=== PATIENT | male | born 1960 | race Caucasian/White ===

== ENCOUNTER 2020-04-12 14:12 | Emergency (ER) | payer OTHER, SELFPAY ==
--- NOTE | 2020-04-12 14:14 | ED.GENADULT ---
HPI - General Adult General Chief complaint: Skin/Abscess/Foreign Body Stated complaint: POS skin abcess Time Seen by Provider: 04/12/20 14:14 Source: patient Mode of arrival: ambulatory Limitations: no limitations History of Present Illness HPI narrative: 60-year-old male patient presents to the [facility] with complaints of wound to his back for the past 3 to 4 days. Patient states that the wound is actually been there for a little over a year however it is been bothering him for the past 3 to 4 days and complains it is getting bigger as well some pressure and pain to the area. Denies any fevers, body aches or chills. Patient denies being a diabetic. Related Data Home Medications Medication Instructions Recorded Confirmed atorvastatin 20 mg PO DAILY 04/12/20 04/12/20 lisinopril-hydrochlorothiazide 20 tablet PO DAILY 04/12/20 04/12/20 metoprolol succinate 50 mg PO DAILY 04/12/20 04/12/20 Allergies Allergy/AdvReac Type Severity Reaction Status Date / Time No Known Allergies Allergy Unverified 04/12/20 14:20 Review of Systems Review of Systems: Narrative: CONSTITUTIONAL: Denies fever, chills, or sweats. EYES: Denies visual changes, redness, or discharge. ENT: Denies rhinorrhea, congestion, sore throat, or otalgia. CARDIOVASCULAR: Denies chest pain, palpitations, or edema. RESPIRATORY: Denies cough or dyspnea. GASTROINTESTINAL: Denies abdominal pain, nausea, vomiting, or diarrhea. GENITOURINARY: Denies dysuria or hematuria. SKIN: Denies rash or itching. Positive wound to back with increase redness and swelling for the past 3 to 4 days MUSCULOSKELETAL: Denies back pain, joint pain, or myalgia. NEUROLOGIC: Denies headache, numbness, or weakness. PSYCHIATRIC: Denies anxiety or depression. [facility] Past Medical History Medical History (Updated 04/12/20 @ 14:57 by TY Swanson) GI bleed Hypercholesterolemia Hypertension Musculoskeletal disorder Left shoulder rotator cuff tear and bicep tendon Seasonal allergies Surgical History Surgical History (Updated 04/12/20 @ 14:57 by TY Swanson) History of orthopedic surgery Left rotator cuff History of repair of rotator cuff 2007 Family History Family History Father Diabetes mellitus Mother Hypertension Social History Social History Smoking status: Former smoker Second hand tobacco smoke exposure: No Smoking end date: 07/16/16 Alcohol intake: current Substance use: never Substance use type: does not use Comments At the time of my signature I agree with nursing past medical history, surgical, social, and family history. There is no relevant family history pertinent to the presenting complaint. Exam Narrative: Exam Narrative: GENERAL: Well-appearing, well-nourished, and in no acute distress. HEAD: Normocephalic, atraumatic. EYES: PERRLA and EOMI. ENT: Nares clear, no rhinorrhea or epistaxis. Mucous membranes moist. NECK: Supple. No lymphadenopathy CHEST: Clear to auscultation. No respiratory distress. HEART: Regular rate and rhythm. No murmur heard. Normal peripheral pulses. ABDOMEN: Soft, nontender, nondistended, normal active bowel sounds. EXTREMITIES: Normal range of motion. No edema. SKIN: Warm, dry, no rash. Patient has approximately 5.5 x 4 cm abscess on the back with erythema and swelling no warmth noted to the touch. It is very tender noted on palpation. NEURO: No focal deficits. Alert and oriented x3. Course Vital Signs Vital signs: Vital Signs Temperature 36.9 C 04/12/20 14:16 Pulse Rate 105 H 04/12/20 14:16 Respiratory Rate 04/12/20 14:16 Blood Pressure 162/90 H 04/12/20 14:16 Pulse Oximetry 99 04/12/20 14:16 Temperature 36.9 C 04/12/20 14:16 Pulse Rate 105 H 04/12/20 14:16 Respiratory Rate 04/12/20 14:16 Blood Pressure 162/90 H 04/12/20 14:16 Pulse Oximetry 99
[2020-04-12 14:16] VITALS: BP 162/90; PULSE 105; RESP 20; TEMP 36.9; O2SAT 99
== END 2020-04-12 14:57 | disposition home or self-care (01) ==
PROVIDERS: Emergency Provider Nurse Practitioner Family; PCP Family Medicine
DX: L02.212 Cutaneous abscess of back [any part, except buttock and flank] (principal); Z87.891 Personal history of nicotine dependence; E78.00 Pure hypercholesterolemia, unspecified; I10 Essential (primary) hypertension
CPT/HCPCS: 10061; 87070; 87075; 87205; 99213; G0463

== ENCOUNTER → 2020-07-19 16:48 | Outpatient (REF) | payer OTHER, SELFPAY | LOC: ANHLAB 16:48 | PROVIDERS: PCP Family Medicine; Visit Provider Nurse Practitioner | DX: L30.9 Dermatitis, unspecified (principal) | CPT/HCPCS: 88305 ==

== ENCOUNTER 2020-11-02 07:59 | Outpatient (CLI) | payer OTHER, SELFPAY ==
--- NOTE | 2020-11-02 08:47 | ECG_ITS ---
Measurements Intervals [place] Rate: 80 P: 32 MT: 134 QRS: -12 QRSD: 105 T: 32 QT: 379 QTc: 439 Interpretive Statements SINUS RHYTHM INCOMPLETE RIGHT BUNDLE BRANCH BLOCK BASELINE ARTIFACT- I, II, III, AVR, AVL, AVF BORDERLINE ECG Electronically Signed On 11-02-2020 9:54:53 CDT by Collins Ribeiro D.O.
[2020-11-02 10:05] LABS: Basophils Absolute Auto 0.1 K/mm3 (0.0-0.1); Basophils Percent Auto 0.8 % (0.2-1.2); Eosinophils Absolute Auto 0.1 K/mm3 (0-0.3); Eosinophils Percent Auto 0.8 % (0-4.4); Hematocrit 45.1 % (42.0-52.0); Hemoglobin 15.1 g/dL (14.0-18.0); Immature Granulocyte Absolute 0.04 K/mm3 (0.00-0.031); Immature Granulocyte Percent A 0.4 % (0-0.5); Lymphocytes Absolute Auto 1.46 K/mm3 (0.9-3.2); Lymphocytes Percent Auto 15.8 % (18.3-44.2); Mean Corpuscular HGB Conc 33.5 g/dl (32-36); Mean Corpuscular Hemoglobin 32.2 pg (26-34); Mean Corpuscular Volume 96.2 fl (80-100); Mean Platelet Volume 10.5 fl (7.4-10.4); Monocytes Absolute Auto 0.8 K/mm3 (0.1-0.6); Monocytes Percent Auto 8.5 % (2.6-8.5); Neutrophils Absolute Auto 6.8 K/mm3 (1.3-6.7); Neutrophils Percent Auto 73.7 % (45.5-73.1); Platelet Count Result 264 k/mm3 (150-375); Red Blood Count 4.69 M/mm3 (4.6-6.20); Red Cell Distribution Width 13.6 % (11.5-14.5); White Blood Count 9.2 K/mm3 (4.5-10.0)
[2020-11-02 10:11] LABS: Urine Cotinine NEGATIVE
[2020-11-02 10:16] LABS: Albumin Level 4.5 g/dL (3.5-5.1); Anion Gap 8 mmol/L (8-16); Blood Urea Nitrogen 17 mg/dL (9-20); Calcium 9.2 mg/dL (8.4-10.2); Carbon Dioxide 32 mmol/L (22-30); Chloride 101 mmol/L (98-107); Estimated Glomerular Filt Rate > 60; Glucose 127 mg/dL (75-110); Potassium 4.1 mmol/L (3.4-5.0); Sodium 141 mmol/L (137-145)
[2020-11-02 10:49] LABS: Hemoglobin A1C 5.4 % (<5.7)
== END 2020-11-02 08:00 | disposition home or self-care (01) ==
LOC: ANHSURGERY 08:01
PROVIDERS: PCP Family Medicine; Visit Provider Orthopaedic Surgery
DX: M17.0 Bilateral primary osteoarthritis of knee (principal); Z01.818 Encounter for other preprocedural examination; I45.10 Unspecified right bundle-branch block
CPT/HCPCS: 80048; 80307; 82040; 83036; 85025; 87070; 93005

== ENCOUNTER → 2020-11-13 01:42 | Outpatient (CLI) | payer OTHER, SELFPAY ==
[2020-11-13 19:16] LABS: SARS-CoV-2 RNA PCR Negative
== END ==
PROVIDERS: PCP Family Medicine; Visit Provider Orthopaedic Surgery
DX: Z01.812 Encounter for preprocedural laboratory examination (principal); Z20.828 Contact with and (suspected) exposure to other viral communicable diseases
CPT/HCPCS: C9803; U0003; U0005

== ENCOUNTER 2020-11-17 01:29 | Day surgery (SDC) | payer OTHER, SELFPAY ==
[2020-11-02 07:52] VITALS: BMI 33.5
--- NOTE | 2020-11-12 08:51 | PM.IMHP ---
H&P: HPI History of Present Illness Date/Time: 11/12/20 08:51 60-year-old male patient of Dr. Blair who presents today for a left total knee arthroplasty with injection in the right knee. Patient has been having pain in both of his knees for years. Pain is progressively worsening. He had cortisone injection in May of last year which gave him minimal relief. He has severe [id number] arthritis medial compartment left knee with multiple loose bodies. Patient has reached a point where he feels he would rather proceed with total knee arthroplasty with a continued nonsurgical treatment. Chief Complaint: Left and right knee DJD Review of Systems Review of Systems: All systems reviewed & are unremarkable except as noted in HPI and below PMFSH Past Medical History Medical History Dyslipidemia Essential (primary) hypertension Musculoskeletal disorder Left shoulder rotator cuff tear and bicep tendon Prediabetes Seasonal allergies Surgical History Surgical History History of repair of rotator cuff 2007 - Left Family History Family History Father Diabetes mellitus Mother Hypertension Social History Social History Smoking packs per day: 1.5 Smoking cigarettes per day: 30.0 Years smoked: 38 Smoking pack-years: 57.00 Smoking status: Former smoker Tobacco type: cigarettes Second hand tobacco smoke exposure: No Smoking end date: 01/13/17 Alcohol intake: current Drinks per week: 28 Substance use: never Substance use type: does not use Additional living arrangements comments: Spiritual care concerns: No Meds Home Medications and Allergies Home Medications Medication Instructions Recorded Confirmed Type lisinopril 20 1 tablet PO QAM tablet 09/30/20 11/02/20 History mg-hydrochlorothiazide 25 mg tablet triamcinolone acetonide 0.1 % 1 applic TOPICAL BID #30 g 10/05/20 11/02/20 Rx topical cream atorvastatin 20 mg PO HS 11/02/20 11/02/20 History metoprolol succinate 50 mg PO QAM 11/02/20 11/02/20 History Allergies Allergy/AdvReac Type Severity Reaction Status Date / Time No Known Allergies Allergy Verified 11/02/20 10:40 Exam Narrative: Exam Narrative: 6-year-old male very alert [place]. He is 5 ft 10 to 140 lb. His left knee range of motion is from 7-120 degrees. Right knee is from 10-120 degrees. He walks with a mild limp relative to pain left knee. Has moderate effusion left knee. Moderate pain with patellofemoral grind. Moderately severe mid and posterior medial joint line tenderness left knee. Hip range of motion is full without discomfort. Normal quad strength. 2+ dorsalis pedis posterior tibial pulse. Normal sensation. No edema in left lower extremity. Resp: Auscultation: clear to auscultation bilaterally Cardio: Rate: regular rate Rhythm: regular rhythm Assessment and Plan Additional Plan 6-year-old male who has severe arthritis in the medial compartment with moderate patellofemoral arthritis left knee with continued symptoms. He also has severe medial compartment arthritis in the right knee. His left knee is more symptomatic this point and he would like proceed with left total knee arthroplasty. Surgical procedure as well as risks and complications were discussed in detail and all questions were answered and we will proceed. Patient will avoid any aspirin ibuprofen products 1 week prior to surgery. He will see his primary care doctor for pre-surgical clearance seem globe in is 15.1 platelets 264. Chem panel is all within normal limits as creatinine 1.00. His swab was negative. We will plan use Eliquis followed by caron martinez for DVT prophylaxis postoperatively.
[2020-11-17] VITALS (13 sets, daily range): BP systolic 98–136; BP diastolic 54–92; PULSE 77–94; RESP 10–18; TEMP 35.8–37.1; O2SAT 95–100; BMI 32.3
--- NOTE | ~2020-11-17 | XR_ITS ---
EXAMINATION: XR knee LT 2V EXAM DATE: 11/17/2020 11:12 INDICATION: Postoperative knee arthroplasty. TECHNIQUE: Portable frontal, crosstable lateral projections left knee obtained immediately following arthroplasty performed by orthopedic surgeon Jaron Walker MD. FINDINGS: Patient is status post total knee arthroplasty. The orthopedic hardware is in expected po sition. Mild scattered arteriosclerotic disease. There is small amount of subcutaneous gas, gas withi n the knee joint space. Overlying soft tissue swelling. Correlate with procedure note. IMPRESSION: Status post total left knee arthroplasty. Reviewed, dictated and finalized at location B.
[2020-11-17] MEDS: ACETAMINOPHEN 500 MG TABLET 1000 MG PO ×3 (06:46→23:34)
--- NOTE | 2020-11-17 06:52 | WPDANESEPPF ---
Anes - Initial Pre Proc Eval Procedure: Operation Date: 11/17/20 07:30 Proposed Procedures p Left Total Knee Arthroplasty With Right Knee Steroid Injection - Jaron Walker MD Date/Time: 11/17/20 06:52 Surgeon: Jaron Walker MD Pre Op Diagnosis: OA Left knee, Right Knee OA Patient Data Age: 60 Gender: M Height: 5 ft 10 in Weight: 102.2 kg Last Vital Signs Temp 36.1 C L 11/17/20 06:35 Pulse 92 11/17/20 06:35 Resp 18 11/17/20 06:35 BP 136/92 H 11/17/20 06:35 Pulse Ox 98 11/17/20 06:35 Allergies Allergy/AdvReac Type Severity Reaction Status Date / Time No Known Allergies Allergy Verified 11/17/20 06:34 Home Medications Medication Instructions Recorded Confirmed Type lisinopril 20 1 tablet PO QAM tablet 09/30/20 11/17/20 History mg-hydrochlorothiazide 25 mg tablet triamcinolone acetonide 0.1 % 1 applic TOPICAL BID #30 g 10/05/20 11/17/20 Rx topical cream atorvastatin 20 mg PO HS 11/02/20 11/17/20 History metoprolol succinate 50 mg PO QAM 11/02/20 11/17/20 History Patient hx anesthesia problems: post op nausea/vomiting Family hx anesthesia problems: none PMFSH Past Medical History Medical History Dyslipidemia Essential (primary) hypertension Musculoskeletal disorder Left shoulder rotator cuff tear and bicep tendon Prediabetes Seasonal allergies Surgical History Surgical History History of repair of rotator cuff 2007 - Left Family History Family History Father Diabetes mellitus Mother Hypertension Social History Social History Smoking packs per day: 1.5 Smoking cigarettes per day: 30.0 Years smoked: 38 Smoking pack-years: 57.00 Smoking status: Former smoker Tobacco type: cigarettes Second hand tobacco smoke exposure: No Smoking end date: 01/13/17 Alcohol intake: current Drinks per week: 28 Alcohol use details: BEER Substance use: never Substance use type: does not use Living arrangements: with family Additional living arrangements comments: Spiritual care concerns: No Anes - Eval Final PreProcedure Day of Procedure 11/17/20 06:52 Patient weight: obese Heart: regular rate and rhythm Lungs: decreased breath sounds Airway: Mallampati scale class II Neurological: alert and oriented Last oral intake: >/= 8 hours ASA classification: III Emergent: no Anesthetic plan: proceed Anesthesia type and monitoring: general LMA and standard monitoring Informed Consent: The patient's anesthetic plan and its attendant risks and benefits were discussed with the patient/family/POA. Questions were solicited and answers provided to the satisfaction of the patient/family/POA.
[2020-11-17] MEDS: TRANEXAMIC ACID 1,000MG/ISO100 1,000 MG/100 ML BAG 200 MG IVPB (06:58)
[2020-11-17] MEDS: LACTATED RINGERS 1,000 ML 30 ML IV CONT ×2 (06:58→11:13)
--- NOTE | 2020-11-17 07:14 | WPDHPUPDATE1 ---
History and Physical Update Update Date/Time: 11/17/20 07:14 History and Physical has been reviewed, including an updated exam of the patient. There are NO changes in the patient's condition. Risks, benefits, and alternatives have been discussed and questions answered. Patient agrees to proceed with procedure.
--- NOTE | 2020-11-17 07:20 | WPDHPUPDATE1 ---
History and Physical Update Update Date/Time: 11/17/20 07:20 History and Physical has been reviewed, including an updated exam of the patient. There are NO changes in the patient's condition. Risks, benefits, and alternatives have been discussed and questions answered. Patient agrees to proceed with procedure.
[2020-11-17] MEDS: ceFAZolin 2 GM/D5W 50 ML 2 GM/50 ML BAG IVPB (07:38)
[2020-11-17] MEDS: methylPREDNISolone ACETATE 80 MG/ML VIAL IM (07:47)
[2020-11-17] MEDS: ceFAZolin SODIUM 1 GM VIAL 3 GM IRRIGATION (08:14)
[2020-11-17] MEDS: ceFAZolin SODIUM 1 GM VIAL IV PUSH (09:56)
[2020-11-17] MEDS: TRANEXAMIC ACID 1,000 MG/10 ML AMPUL 1000 MG IV PUSH (09:58)
--- NOTE | 2020-11-17 10:50 | PM.PROC ---
Procedure Note - Detailed Date of procedure: 11/17/20 Pre-op diagnosis: OA Left knee, Right Knee OA Post-op diagnosis: same Procedure performed: Cortisone injection right knee, left total knee arthroplasty Description of procedure: Patient was brought to the operating room and general anesthesia was administered. He received 2 g of Ancef weight based vancomycin 1 g of tranexamic acid preoperatively. The right knee was prepped with chlorhexidine ChloraPrep and 80 mg of Depo-Medrol and 3 cc 1% lidocaine were injected into the right knee without difficulty. The left knee was prepped draped usual fashion. Limb was exsanguinated tourniquet elevated to 250 mmHg. A 7 in longitudinal midline incision was used in the vastus medialis splitting approach utilized splitting the vastus medialis at the superior pole of the patella. Infrapatellar and suprapatellar fat pads were excised and a course of synovectomy carried out. The calcified loose body was found to be adherent to the undersurface of the quadriceps tendon was removed. The patella was arthritic. It measured 23.5 mm in thickness and was cut to 15.5 mm in thickness and a protector cap applied. Guide toyin was inserted down the femoral canal after aspiration of canal contents use the 5 degree valgus cutting bushing 10 mm of bone removed the distal femur. Period because of the wear on the medial side this removed equal amounts medially and laterally. Next the tibial plateau was cut. We made a skim cut off the low point of the defect in the anterior aspect of the medial tibial plateau. This removed about 8 mm laterally. Meniscal remnants were excised the PCL was recessed. In extension the knee was quite a bit tighter medially than laterally. We exposed the medial osteophyte and very conservative trimming of this was performed this time. Flexion gap measured 8 mm medially and 12 mm laterally at 90? of flexion. The cutting guide was applied to the femur at 5? of external rotation which matched [place] line appropriately. We did drop the guide a mm off the posterior surface of the medial femoral condyle because of significant wear. Posterior represent pin holes were placed and a 67.5 cutting guide applied the femur and AP and chamfer cuts were made. The 67.5 fit nicely line to line medial to lateral and anterior to posterior. We trialed and we had ample plate with the 10 degree insert in flexion. In extension we had plate laterally but was too tight medially to allow extension. In flexion at 90? the flexion gaps appeared close. Was still perhaps a little bit tighter medially than laterally. The tibia was sized to a size 75 vanguard. This was placed in the anatomic position on the tibia taking into account the prominent medial tibial osteophyte. Rotation was set referenced off the medial 1/3 of the patellar tendon and the 2nd metatarsal. This was punched. We then used a 2 mm drill bit to make multiple perforations in the medial margin of the tibial plateau about 2 mm medial to the tibial component and then a quarter-inch osteophyte used to connect these drill holes to remove the sclerotic medial tibial plateau osteophyte that was quite prominent. We had released the medial capsule only and I off to expose allow removal of this osteophyte. The osteophyte was not very pronounced over the posteror aspect of the medial tibial plateau surprisingly with this done we could see leakage of some of the yellow gelatinous fluid from the large [place] cyst that he has and we opened up that perforation in the posterior medial capsule posterior to the medial tibial plateau allowing for decompression of this very large posterior popliteal cyst. We left an opening of almost a cm to allow for spontaneous decompression. We trialed with the 11 insert. We had a little bit of play at 90? not quite full extension but now we had a little bit of play medially at 5? as well as laterally. The 12 insert had more appropriate stability at 90
--- NOTE | 2020-11-17 11:28 | SUR.PHASEI ---
O2 removed at 1128.
[2020-11-17] MEDS: fentaNYL CITRATE INJ (*CRX) 100 MCG/2 ML VIAL 25 MCG IV PUSH ×4 (11:32→12:08)
--- NOTE | 2020-11-17 12:30 | ADMGEN ---
This patient, Washington Wooten, was admitted to Medical Room 246-01. Patient/family oriented to hospital policies and general routines including ID bracelet, bed and alarms, visiting hours, pain management, procedures, bathroom and other care routines, personal items, smoking policy, room service/diet, and visiting hours. Information on how to activate the Rapid Response Team has been discussed. Patient/Family are encouraged to report perceived risks to care and to ask questions if they do not understand what they are told or what they should do.
--- NOTE | 2020-11-17 13:15 | WPDCN ---
Assessment and Plan Assessment and plan (1) Osteoarthritis of both knees: Code(s): M17.0 - Bilateral primary osteoarthritis of knee Status: Acute Assessment and Plan: Post operative day 0, status post left total knee replacement and right knee injection. Wound care and pain control will be deferred to Dr. Walker as well as DVT prophylaxis. Agree with PT/OT. Baseline labs in a.m. (2) Essential (primary) hypertension: Code(s): I10 - Essential (primary) hypertension Status: Acute Assessment and Plan: Blood pressures were reviewed and they are stable. Continue antihypertensives and monitor daily. (3) Dyslipidemia: Code(s): E78.5 - Hyperlipidemia, unspecified Status: Acute Assessment and Plan: Continue statin check LFTs in a.m. (4) Daily consumption of alcohol: Code(s): Z78.9 - Other specified health status Status: Acute Assessment and Plan: Initiate CIWA protocol and monitor closely for signs and symptoms of alcohol withdrawal. (5) Urinary retention: Code(s): R33.9 - Retention of urine, unspecified Status: Acute Assessment and Plan: Patient was unable to urinate after surgery and was straight catheterization x1. Continue to monitor closely, may consider the addition of Flomax if he has more issues urinating. Additional Plan Thank you for allowing us to participate in this patient's care. Please do not hesitate to contact us with any questions. Supervising physician for this medical consultation is Dr. Jessika Ohara. HPI Data of Consult Date/Time: 11/17/20 13:15 Requesting Physician: Jaron Walker MD Primary Care Provider: Krishan Blair MD Consult Narrative Narrative: This is a 60-year-old male hypertension, hyperlipidemia, and osteoarthritis whom the hospitalist service has been consulted for management of his medical conditions postoperatively. He has had pain in both knees for quite some time though the left seems to be giving him more grief. Despite conservative outpatient therapy he continues to have pain and elected for replacement today. His surgery was performed under general anesthesia with no immediate complications documented an estimated blood loss of 200 milliliters. He has a history of postoperative nausea and vomiting, was treated for such, and has had no issues. The patient has been up to the chair and ambulated with the help of a walker and PT without issue. At the time my evaluation he is comfortable and has no complaints although does mention he had a difficult time urinating earlier today and they had to straight cath him x1. He has no known history of BPH and has no real symptoms of such although he has noticed that his urine stream is perhaps a bit more weak than what it used to be. He denies fever, chills, sweats, chest pain, and shortness of breath. No paresthesias, skin color, or temperature changes distal to the surgical site. Review of Systems Review of Systems: Narrative: Twelve systems were reviewed with pertinent positives and negatives as per HPI. No recent cold or flu symptoms. He denies exposure to those positive for COVID-19. No symptoms of such. No history of cardiac or pulmonary disease. He denies chest pain shortness of breath. No history of venous thromboembolism. He has never had signs or symptoms of alcohol withdrawal. Except as documented, all other systems were reviewed and are negative. FOR[facility]LY [facility], [facility] Past Medical History Medical History (Updated 11/17/20 @ 20:02 by Mildred Rothman PA-C) Daily consumption of alcohol Dyslipidemia Essential (primary) hypertension Osteoarthritis Prediabetes Hemoglobin A1c was 5.4% in October 2020. Seasonal allergies Surgical History Surgical History (Updated 11/17/20 @ 13:31 by Mildred Rothman PA-C) History of arthroplasty of left knee (11/17/20) History of repair of left rotator cuff (~2006) Family History F
[2020-11-17] MEDS: oxyCODONE HCL (*CRX) 5 MG TAB IR PO ×3 (14:04→20:55)
[2020-11-17] MEDS: SENNA/DOCUSATE SODIUM TABLET 2 TAB PO (17:19)
[2020-11-17] MEDS: ATORVASTATIN 20 MG TABLET PO (20:55)
[2020-11-18 02:15] VITALS: BP 120/64; PULSE 74; RESP 16; TEMP 36.7; O2SAT 99
[2020-11-18] MEDS: oxyCODONE HCL (*CRX) 5 MG TAB IR PO ×2 (05:22→08:51)
[2020-11-18] MEDS: ACETAMINOPHEN 500 MG TABLET 1000 MG PO (05:22)
[2020-11-18 05:35] LABS: Basophils Percent Auto 0.2 % (0.2-1.2); Hematocrit 37.7 % (42.0-52.0); Hemoglobin 12.9 g/dL (14.0-18.0); Immature Granulocyte Percent A 0.6 % (0-0.5); Lymphocytes Absolute Auto 0.72 K/mm3 (0.9-3.2); Lymphocytes Percent Auto 4.1 % (18.3-44.2); Mean Corpuscular HGB Conc 34.2 g/dl (32-36); Mean Corpuscular Hemoglobin 32.1 pg (26-34); Mean Corpuscular Volume 93.8 fl (80-100); Mean Platelet Volume 10.6 fl (7.4-10.4); Monocytes Absolute Auto 1.4 K/mm3 (0.1-0.6); Neutrophils Absolute Auto 15.1 K/mm3 (1.3-6.7); Neutrophils Percent Auto 87.1 % (45.5-73.1); Platelet Count Result 242 k/mm3 (150-375); Red Blood Count 4.02 M/mm3 (4.6-6.20); Red Cell Distribution Width 13.1 % (11.5-14.5); White Blood Count 17.4 K/mm3 (4.5-10.0)
[2020-11-18 05:53] LABS: Alanine Aminotransferase 18 U/L (4-50); Albumin Level 3.9 g/dL (3.5-5.1); Alkaline Phosphatase 60 U/L (38-126); Anion Gap 4 mmol/L (8-16); Aspartate Amino Transferase 23 U/L (17-59); Bilirubin,Total 0.5 mg/dL (0.2-1.3); Blood Urea Nitrogen 17 mg/dL (9-20); Calcium 9.2 mg/dL (8.4-10.2); Carbon Dioxide 31 mmol/L (22-30); Chloride 102 mmol/L (98-107); Estimated CRCL calculation 76 ml/min; Estimated Glomerular Filt Rate > 60; Glucose 139 mg/dL (75-110); Sodium 137 mmol/L (137-145)
[2020-11-18 05:56] VITALS: BP 135/72; PULSE 78; RESP 16; TEMP 36.7; O2SAT 100
--- NOTE | 2020-11-18 06:11 | PM.PNORT ---
Progress Note: A&P Additional Plan Patient is postoperative day 1 after total knee arthroplasty. He is afebrile with vital signs stable. His labs are still pending. He did half to be catheterized for urinary retention early last evening but since that time he has been voiding normally. He feels well he is neurologically intact his wound shows no drainage on the dressing. He will be discharged later this morning after physical therapy. Subjective Subjective Date/Time Seen: 11/18/20 06:11 Objective Data Vital Signs Vital Signs: Vital Signs - 24 hr 11/17/20 06:35 11/17/20 11:13 11/17/20 11:25 Temperature 36.1 C L 36.2 C L Pulse Rate 92 92 77 Respiratory Rate 18 12 13 Blood Pressure 136/92 H 101/62 98/54 L Pulse Oximetry 98 100 100 11/17/20 11:40 11/17/20 11:50 11/17/20 12:05 Temperature Pulse Rate 79 79 79 Respiratory Rate 10 L 17 18 Blood Pressure 117/66 116/70 121/71 Pulse Oximetry 95 96 97 11/17/20 12:20 11/17/20 12:30 11/17/20 12:45 Temperature 35.9 C L 35.9 C L Pulse Rate 77 80 82 Respiratory Rate 18 14 14 Blood Pressure 117/76 134/69 117/65 Pulse Oximetry 98 98 99 11/17/20 13:15 11/17/20 14:15 11/17/20 18:15 Temperature 35.8 C L 35.8 C L 37.1 C Pulse Rate 79 80 88 Respiratory Rate 16 16 18 Blood Pressure 114/66 128/65 135/76 Pulse Oximetry 99 99 98 11/17/20 22:15 11/18/20 02:15 11/18/20 05:56 Temperature 36.7 C 36.7 C 36.7 C Pulse Rate 94 74 78 Respiratory Rate 16 16 16 Blood Pressure 124/70 120/64 135/72 Pulse Oximetry 98 99 100 Intake/Output Intake/Output: Intake & Output 11/15/20 11/16/20 11/17/20 11/18/20 23:59 23:59 23:59 23:59 Intake Total 1890 450 Output Total 500 Balance 1390 450 Meds/Results Medications: Active Medications Generic Name Dose Route Start Last Admin Trade Name Freq PRN Reason Stop Dose Admin Acetaminophen 1,000 mg 11/17/20 18:00 11/18/20 05:22 Acetaminophen 500 Mg Tablet PO 1,000 mg Q6HR CHRYSTAL Administration Apixaban 2.5 mg 11/18/20 09:00 Apixaban 2.5 Mg Tablet PO 11/30/20 09:01 Q12HR [facility] Atorvastatin Calcium 20 mg 11/17/20 21:00 11/17/20 20:55 Atorvastatin 20 Mg Tablet PO 20 mg HS [facility] Administration Celecoxib 200 mg 11/18/20 08:00 Celecoxib 200 Mg Capsule PO DAILY@0800 [facility] Chlordiazepoxide HCl 10 mg 11/17/20 13:36 Chlordiazepoxide (*Crx) 10 Mg Capsule PO Q6H PRN Alcohol Withdrawal Folic Acid 1 mg 11/18/20 09:00 Folic Acid 1 Mg Tablet PO DAILY [facility] Hydrochlorothiazide 25 mg 11/18/20 09:00 Hydrochlorothiazide 25 Mg Tablet PO 12/18/20 09:01 [facility] Cefazolin Sodium 1 gm in 50 mls @ 100 mls/hr 11/17/20 15:00 11/18/20 00:05 Ancef 1 Gm/D5w 50 Ml Pm IVPB 11/18/20 07:29 Infused Q8H [facility] Infusion Vancomycin HCl 1,000 mg in 250 mls @ 250 mls/hr 11/17/20 19:00 11/17/20 19:56 Vancomycin 1,000 Mg/D5w 250 Ml IVPB 11/18/20 07:59 Infused Q12H [facility] Infusion Lisinopril 20 mg 11/18/20 09:00 Lisinopril 20 Mg Tablet PO 12/18/20 09:01 [facility] Metoprolol Succinate 50 mg 11/18/20 09:00 Metoprolol Succinate Ext Rel 50 Mg Tabcr PO [facility] Morphine Sulfate 2 mg 11/17/20 12:27 Morphine Sulfate (*Crx) 2 Mg/Ml Inj IV PUSH Q1H PRN Pain Rated 7-10 Multivitamins/Calcium 1 tablet 11/18/20 09:00 Therapeutic Multivitamins/Minerals Tab (*Bkc) PO [facility] Naloxone HCl 0.1 mg 11/17/20 12:27 Naloxone Hcl 0.4 Mg/Ml Vial IV PUSH Q2M PRN Opiate Reversal Oxycodone HCl 5 mg 11/17/20 13:00 11/18/20 05:22 Oxycodone Hcl (*Crx) 5 Mg Tab Ir PO 5 mg Q4HR [facility] Administration Oxycodone HCl 5 mg 11/17/20 12:27 Oxycodone Hcl (*Crx) 5 Mg Tab Ir PO Q4H PRN Pain Rated 7-10 Polyethylene Glycol 17 gm 11/18/20 09:00 Polyethylene Glycol 3350 17 Gm Powd.Pack PO QAM CHRYSTAL Senna/Docusate Sodium 2 tab 11/17/20 17:00 11/17/20 17:19 Senna/Docusate Sodium Tablet PO 2 tab
--- NOTE | 2020-11-18 06:26 | PM.DS ---
DS: Admitting Diagnosis Admitting Diagnosis Admitting Diagnosis: Osteoarthritis both knees DS: Summary Hospital Course Hospital Course: See discharge summary Time Spent with Patient Time attestation: Total time spent providing and/or coordinating discharge services: Patient was admitted for outpatient postoperative observation yesterday following left total knee arthroplasty and cortisone injection right knee. His postoperative course has been uneventful. The exception to this was that he did have urinary retention last evening and had to be in and out catheterized and since that time he has been voiding normally. He has been doing well as far as his pain control and getting up to use the restroom without difficulty. His laboratory tests are still pending. He is to be discharged home to resume all of his home medications. He is in good condition. DS: Data Data Completed and Pending Labs on day of discharge: Labs from last 24 hours 11/18/20 11/18/20 11/17/20 05:18 05:17 07:00 WBC Pending RBC Pending Hgb Pending Hct Pending MCV Pending MCH Pending MCHC Pending RDW Pending Plt Count Pending MPV Pending Immature Gran % (Auto) Pending Neut % (Auto) Pending Lymph % (Auto) Pending [place] % (Auto) Pending Eos % (Auto) Pending Baso % (Auto) Pending Lymph # (Auto) Pending [place] # (Auto) Pending Eos # (Auto) Pending Baso # (Auto) Pending Abs Immat Gran (auto) Pending Absolute Neuts (auto) Pending Absolute Nucleated RBC Pending Nucleated RBC % Pending Sodium 137 Potassium 4.0 Chloride 102 Carbon Dioxide 31 H Anion Gap 4 L BUN 17 Creatinine 1.10 Estim Creat Clear Calc 76 Estimated GFR > 60 Glucose 139 H Calcium 9.2 Magnesium 2.0 Total Bilirubin 0.5 Direct Bilirubin 0.0 AST 23 ALT 18 Alkaline Phosphatase 60 Total Protein 7.0 Albumin 3.9 Blood Type B Negative Antibody Screen Negative Discharge Plan Discharge Attending physician on discharge: Jaron Walker Consulting providers: Jessika Ohara Discharging Clinician: Jaron Walker Anticipated Discharge Date/Time: 11/18/20 12:14 Patient Disposition: Home, Self-Care Activity: may shower Diet: as tolerated Wound Care Instructions: other - see discharge instructions Discharge Instructions: Remove the dressing on the front of your knee on Sunday of next week. Apply a new dressing at that time using the instructions on the front of the dressing package. He may shower with water running over your knee covered with this dressing. As discussed, it is important to avoid sitting in the chair more than necessary. Sit in the chair for meals going to the bathroom receiving visitors otherwise when you are not up walking, laid down on the couch to rest rather than sitting in the chair. Sitting the chair will cause her knee to swell and swelling will make your knee stiff and impede her ability to bend and straighten her knee fully. The 2 most important ?exercises and ?that she need to focus on our full extension and full flexion and maintaining these wall your knee is healing. You are full weight-bearing. Do not Aleve or Advil with the Eliquis. Patient Instructions: Antibiotic Form, Apixaban (By mouth), Pain Management (DC), Joint Replacement Surgery (DC), Knee Replacement (DC) Stand Alone Forms: General Discharge Information Follow-up/Referrals: Jaron Walker MD [Physician] - Discharge Medications: New oxycodone 5 mg Tablet 5 mg PO Q4HR Qty: 40 RF: 0 sennosides-docusate sodium [Senokot-S] 8.6-50 mg Tablet 2 tab-cap PO BID Qty: 90 RF: 0 acetaminophen 500 mg Tablet 1,000 mg PO Q6HR Qty: 90 RF: 0 Eliquis 2.5 mg Tablet 2.5 mg PO Q12HR Qty: 24 RF: 0 celecoxib [Celebrex] 200 mg Capsule 200 mg PO DAILY@0800 Qty: 30 RF: 0 polyethylene glycol 3350 [Miralax] 17 gram Powder In Packe
--- NOTE | 2020-11-18 07:46 | P.PNAN_ITS ---
Anes - Prog Note Post-Op Date/Time: 11/18/20 07:46 Cardiovascular status: normal Respiratory status: normal Airway patency: baseline Mental status: baseline Post-Op hydration status: normal Vital Signs: Last Vital Signs Temp 36.7 C 11/18/20 05:56 Pulse 78 11/18/20 05:56 Resp 16 11/18/20 05:56 BP 135/72 11/18/20 05:56 Pulse Ox 100 11/18/20 05:56 Pain Score (VAS): 0 I/O: Intake & Output 11/17/20 11/17/20 11/18/20 15:59 23:59 07:59 Intake Total 700 1090 500 Output Total 500 Balance 700 590 500 Laboratory Tests 11/18/20 05:18 11/18/20 05:17 11/17/20 11/18/20 11/18/20 07:00 05:17 05:18 WBC 17.4 H RBC 4.02 L Hgb 12.9 L Hct 37.7 L MCV 93.8 MCH 32.1 MCHC 34.2 RDW 13.1 Plt Count 242 MPV 10.6 H Immature Gran % (Auto) 0.6 H Neut % (Auto) 87.1 H Lymph % (Auto) 4.1 L [place] % (Auto) 8.0 Eos % (Auto) 0.0 Baso % (Auto) 0.2 Lymph # (Auto) 0.72 L [place] # (Auto) 1.4 H Eos # (Auto) 0.0 Baso # (Auto) 0.0 Abs Immat Gran (auto) 0.10 H Absolute Neuts (auto) 15.1 H Absolute Nucleated RBC 0.0 Nucleated RBC % 0.0 Sodium 137 Potassium 4.0 Chloride 102 Carbon Dioxide 31 H Anion Gap 4 L BUN 17 Creatinine 1.10 Estim Creat Clear Calc 76 Estimated GFR > 60 Glucose 139 H Calcium 9.2 Magnesium 2.0 Total Bilirubin 0.5 Direct Bilirubin 0.0 AST 23 ALT 18 Alkaline Phosphatase 60 Total Protein 7.0 Albumin 3.9 Blood Type B Negative Antibody Screen Negative Post-procedural complaints: none Patient Feedback: Patient satisfied with anesthetic care.
[2020-11-18 08:50] VITALS: PULSE 78
[2020-11-18] MEDS: lisinopriL 20 MG TABLET PO (08:50)
[2020-11-18] MEDS: CELECOXIB 200 MG CAPSULE PO (08:50)
[2020-11-18] MEDS: METOPROLOL SUCCINATE EXT REL 50 MG TABCR PO (08:50)
[2020-11-18] MEDS: hydroCHLOROthiazide 25 MG TABLET PO (08:50)
[2020-11-18] MEDS: SENNA/DOCUSATE SODIUM TABLET 2 TAB PO (08:50)
[2020-11-18] MEDS: APIXABAN 2.5 MG TABLET PO (08:50)
[2020-11-18] MEDS: FOLIC ACID 1 MG TABLET PO (08:50)
[2020-11-18] MEDS: THIAMINE HCL 100 MG TABLET PO (08:50)
[2020-11-18] MEDS: THERAPEUTIC MULTIVITAMINS/MINERALS TAB (*BKC) 1 TABLET PO (08:50)
[2020-11-18] MEDS: polyethylene glycoL 3350 17 GM POWD.PACK PO (08:51)
[2020-11-18 10:15] VITALS: BP 138/71; PULSE 94; RESP 18; TEMP 36.1; O2SAT 98
[2020-11-18 10:45] VITALS: O2SAT 97
--- NOTE | 2020-11-18 13:53 | PM.IMPN ---
Progress Note: A&P Assessment and Plan (1) Osteoarthritis of both knees: Code(s): M17.0 - Bilateral primary osteoarthritis of knee Status: Acute Assessment and Plan: Post operative day 1 status post left total knee replacement and right knee injection Wound care and pain control will be deferred to Dr. Walker as well as DVT prophylaxis PT/OT. Hbg 12.9 Plan for d/c today per primary team (2) Essential (primary) hypertension: Code(s): I10 - Essential (primary) hypertension Status: Acute Assessment and Plan: Stable Continue antihypertensives monitor (3) Dyslipidemia: Code(s): E78.5 - Hyperlipidemia, unspecified Status: Acute Assessment and Plan: Continue statin check LFTs in a.m. (4) Daily consumption of alcohol: Code(s): Z78.9 - Other specified health status Status: Acute Assessment and Plan: CIWA 0 Monitor closely for signs and symptoms of alcohol withdrawal (5) Urinary retention: Code(s): R33.9 - Retention of urine, unspecified Status: Acute Assessment and Plan: Patient was unable to urinate after surgery and was straight catheterization x1 Continue to monitor closely Voiding without difficulty Consider the addition of Flomax if symtpoms return Additional Plan Thank you for allowing us to participate in this patient's care. Please do not hesitate to contact us with any questions. Subjective Date/time seen: 11/18/20 13:53 Pt seen and evaluated; he states that his pain is controlled; denies any symptoms of alcohol withdrawl Review of Systems Review of Systems: All systems reviewed & are unremarkable except as noted in HPI and below Exam Narrative: Exam Narrative: General: Well-developed male supine in bed in no acute distress. Weight: 102.2 kilograms. BMI: 32.3. HEENT: Wearing glasses. PERRL, EOMI. Sclerae anicteric. Oral mucosa moist. Neck: Supple. Respiratory: Lungs are clear to auscultation bilaterally. Cardiovascular: Regular rate and rhythm with S1-S2. Gastrointestinal: Abdomen is soft, nontender, and nondistended with positive bowel sounds. Skin: Warm and dry. No rash or lesions on limited exam. Extremities: No cyanosis, clubbing, or edema. Radial and pedal pulses intact. Musculoskeletal: Left knee is surgically dressed. He is neurovascularly intact distal to the surgical site. Neurological: Alert. Cranial nerves 2-12 grossly intact. No gross focal deficits to casual conversation. Psychiatric: Pleasant and cooperative with normal mood and affect. Judgment and insight intact. Objective Data Vital Signs Vital Signs: Vital Signs - 24 hr 11/17/20 14:15 11/17/20 18:15 11/17/20 22:15 Temperature 35.8 C L 37.1 C 36.7 C Pulse Rate 80 88 94 Respiratory Rate 16 18 16 Blood Pressure 128/65 135/76 124/70 Pulse Oximetry 99 98 98 11/18/20 02:15 11/18/20 05:56 11/18/20 08:50 Temperature 36.7 C 36.7 C Pulse Rate 74 78 78 Respiratory Rate 16 16 Blood Pressure 120/64 135/72 Pulse Oximetry 99 100 11/18/20 10:15 11/18/20 10:45 Temperature 36.1 C L Pulse Rate 94 Respiratory Rate 18 Blood Pressure 138/71 Pulse Oximetry 98 97 Intake/Output Intake/Output: Intake & Output 11/15/20 11/16/20 11/17/20 11/18/20 23:59 23:59 23:59 23:59 Intake Total 1890 740 Output Total 500 Balance 1390 740 Meds/Results Radiology Results: ITS Impressions Knee X-Ray 11/17/20 11:45 IMPRESSION: Status post total left knee arthroplasty. Labs Labs: Laboratory Results - last 24 hr 11/18/20 11/18/20 05:17 05:18 WBC 17.4 H RBC 4.02 L Hgb 12.9 L Hct 37.7 L MCV 93.8 MCH 32.1 MCHC 34.2 RDW 13.1 Plt Count 242 MPV 10.6 H Immature Gran % (Auto) 0.6 H Neut % (Auto) 87.1 H Lymph % (Auto) 4.1 L [place] % (Auto) 8.0 Eos % (Auto) 0.0 Baso % (Auto) 0.2 Lymph # (Auto) 0.72 L [place] # (Auto) 1.4 H Eos # (Auto)
== END 2020-11-18 11:50 | disposition home or self-care (01) ==
LOC: ANHSURGERY 06:12 → ANH2MED 14:19
PROVIDERS: Physician Assistant; PCP Family Medicine; Visit Provider Orthopaedic Surgery
PROC: (CPT 27447; principal; 2020-11-17 07:30)
DX: M17.0 Bilateral primary osteoarthritis of knee (principal); R73.03 Prediabetes; E78.5 Hyperlipidemia, unspecified; Z87.891 Personal history of nicotine dependence; R33.9 Retention of urine, unspecified; E66.9 Obesity, unspecified; Z68.32 Body mass index [BMI] 32.0-32.9, adult; I10 Essential (primary) hypertension
CPT/HCPCS: 27447; 20610; 36415; 73560; 80048; 80076; 80307; 82040; 83036; 83735; 85025; 86850; 86900; 86901; 87070; 93005; 97110; 97116; 97161; 97165; 97530; 97535; A9270; C1713; C1776; C9803; J0171; J0690; J1040; J1100; J1170; J1885; J2250; J2270; J2370; J2405; J2704; J2710; J2795; J3010; J3370; J7120; U0003; U0005

== ENCOUNTER → 2021-02-21 03:36 | Outpatient (CLI) | payer OTHER, SELFPAY ==
[2021-02-21 17:32] LABS: SARS-CoV-2 RNA PCR Negative
== END ==
PROVIDERS: PCP Family Medicine; Visit Provider Surgery Plastic and Reconstructive Surgery
DX: Z01.812 Encounter for preprocedural laboratory examination (principal); Z20.822 Contact with and (suspected) exposure to COVID-19
CPT/HCPCS: C9803; U0003; U0005

== ENCOUNTER 2021-02-23 15:05 | Emergency (ER) | payer OTHER, SELFPAY ==
[2021-02-23 15:10] VITALS: BP 145/101; PULSE 99; RESP 16; TEMP 36.3; O2SAT 99
--- NOTE | 2021-02-23 15:28 | ED.MALEGU ---
HPI - Male Genitourinary General Chief complaint: Urogenital-Male Stated complaint: FREQUENT URINATION Time Seen by Provider: 02/23/21 15:21 Source: patient and RN notes reviewed Mode of arrival: ambulatory Limitations: no limitations History of Present Illness HPI Narrative: Patient presents today complaining of urinary frequency x2 days. Reports he woke up 4-5 times last night to urinate. Denies dysuria, hematuria, back pain. Denies concerns for sexually transmitted infections. Reports that he has an appointment tomorrow with his PCP for same complaint. Denies history of prostate issues. Related Data Allergies Allergy/AdvReac Type Severity Reaction Status Date / Time No Known Allergies Allergy Verified 02/21/21 13:53 Review of Systems Review of Systems: CONSTITUTIONAL: Denies body aches, fever, chills, or sweats. EYES: Denies visual changes, redness, or discharge. ENT: Denies rhinorrhea, congestion, sore throat, or otalgia. CARDIOVASCULAR: Denies chest pain, palpitations, or edema. RESPIRATORY: Denies cough or dyspnea. GASTROINTESTINAL: Denies abdominal pain, nausea, vomiting, or diarrhea. GENITOURINARY: Denies dysuria or hematuria.+ Urinary frequency SKIN: Denies rash, itching, or wounds. MUSCULOSKELETAL: Denies back pain, joint pain, or myalgia. NEUROLOGIC: Denies headache, numbness, tingling, or weakness. PSYCH: Denies depression or anxiety. [facility] Past Medical History Medical History Daily consumption of alcohol Dyslipidemia Essential (primary) hypertension Osteoarthritis Prediabetes Hemoglobin A1c was 5.4% in October 2020. Seasonal allergies Surgical History Surgical History History of arthroplasty of left knee (11/17/20) History of repair of left rotator cuff (~2006) Family History Family History Father Diabetes mellitus Mother Hypertension Social History Social History Social History: Surrogate decision maker: Naomiebernardo Wooten, . Code status: Full code. Smoking packs per day: 1.5 Smoking cigarettes per day: 30.0 Years smoked: 38 Smoking pack-years: 57.00 Smoking status: Unknown if ever smoked Tobacco type: cigarettes Second hand tobacco smoke exposure: No Smoking end date: 01/13/17 Alcohol intake: current Drinks per week: 28 Alcohol use details: Beer. 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 Gender identity (if verbalized by the patient): Male Spiritual care concerns: No Comments At time of signature, I have reviewed and agree with nursing past medical, surgical, social and family history unless otherwise noted. Please see nursing chart for further information. There is no relevant family history pertinent to the presenting complaint Exam Narrative: GENERAL: Well-appearing, well-nourished, and in no acute distress. HEAD: Normocephalic, atraumatic. EYES: EOMI. No redness or drainage. Conjunctivae normal. ENT: Mucous membranes pink and moist. NECK: Normal AROM. CHEST: No respiratory distress. Clear to auscultation. HEART: Regular rate and rhythm. No murmur appreciated. Normal peripheral pulses. ABDOMEN: Soft, nontender, nondistended, normal active bowel sounds. MUSCULOSKELETAL: No bony tenderness. EXTREMITIES: Normal range of motion. No edema. SKIN: Warm, dry, no rash. Capillary refill normal. Normal skin turgor. NEURO: No focal deficits. Alert and oriented x3. Gait steady. PSYCH: Normal affect. No signs of depression or anxiety. Course Vital Signs Vital signs: Vital Signs Temperature 97.3 F L 02/23/21 15:10 Pulse Rate 99 02/23/21 15:10 Respiratory Rate 16 02/23/21 15:10 Blood Pre
== END 2021-02-23 15:33 | disposition home or self-care (01) ==
PROVIDERS: Emergency Provider Nurse Practitioner; PCP Family Medicine
DX: R35.0 Frequency of micturition (principal); E78.5 Hyperlipidemia, unspecified; I10 Essential (primary) hypertension; M19.90 Unspecified osteoarthritis, unspecified site; R73.03 Prediabetes
CPT/HCPCS: 81003; 99212; G0463

== ENCOUNTER 2021-02-24 01:14 | Day surgery (SDC) | payer OTHER, SELFPAY ==
[2021-02-21 13:49] VITALS: BMI 32.3
[2021-02-24] MEDS: LACTATED RINGERS 1,000 ML 30 ML IV CONT (10:31)
[2021-02-24 10:32] VITALS: BP 136/89; PULSE 116; RESP 20; TEMP 36.6; O2SAT 99; BMI 32.3
--- NOTE | 2021-02-24 11:03 | WPDHPUPDATE1 ---
History and Physical Update Update Date/Time: 02/24/21 11:03 History and Physical has been reviewed, including an updated exam of the patient. There are NO changes in the patient's condition. Risks, benefits, and alternatives have been discussed and questions answered. Patient agrees to proceed with procedure.
--- NOTE | 2021-02-24 11:11 | WPDANESEPPF ---
Anes - Initial Pre Proc Eval Procedure: Operation Date: 02/24/21 12:00 Proposed Procedures p Excision Right Back Mass - Fernando Barros MD s Excision Neoplasm Nasal Tip - Fernando Barros MD Date/Time: 02/24/21 11:11 Surgeon: Fernando Barros MD Pre Op Diagnosis: Mass right back, neoplasm nasal tip Patient Data Age: 60 Gender: M Height: 1.78 m Weight: 102.2 kg Last Vital Signs Temp 36.6 C 02/24/21 10:32 Pulse 116 H 02/24/21 10:32 Resp 20 02/24/21 10:32 BP 136/89 02/24/21 10:32 Pulse Ox 99 02/24/21 10:32 Allergies Allergy/AdvReac Type Severity Reaction Status Date / Time No Known Allergies Allergy Verified 02/24/21 09:10 Home Medications Medication Instructions Recorded Confirmed Type atorvastatin 20 mg tablet 20 mg PO QHS #90 tablet 12/23/20 02/24/21 Rx lisinopril 20 1 tablet PO QAM #90 tablet 01/24/21 02/24/21 Rx mg-hydrochlorothiazide 25 mg tablet metoprolol succinate 50 mg 50 mg PO DAILY #90 tablet 02/21/21 02/24/21 Rx tablet,extended release 24 hr tamsulosin 0.4 mg capsule 0.4 mg PO DAILY #90 cap 02/24/21 02/24/21 Rx Patient hx anesthesia problems: post op nausea/vomiting Family hx anesthesia problems: none PMFSH Past Medical History Medical History Daily consumption of alcohol Dyslipidemia Essential (primary) hypertension Nocturia Osteoarthritis Prediabetes Hemoglobin A1c was 5.4% in October 2020. Seasonal allergies Surgical History Surgical History History of arthroplasty of left knee (11/17/20) History of repair of left rotator cuff (~2006) Family History Family History Father Diabetes mellitus Mother Hypertension Social History Social History Social History: Surrogate decision maker: Naomie Wooten, . Code status: Full code. Smoking packs per day: 1.5 Smoking cigarettes per day: 30.0 Years smoked: 38 Smoking pack-years: 57.00 Smoking status: Unknown if ever smoked Tobacco type: cigarettes Second hand tobacco smoke exposure: No Smoking end date: 01/13/17 Alcohol intake: current Drinks per week: 28 Alcohol use details: Beer. 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 Gender identity (if verbalized by the patient): Male Spiritual care concerns: No Anes - Eval Final PreProcedure Day of Procedure 02/24/21 11:11 Patient weight: obese Heart: regular rate and rhythm Lungs: decreased breath sounds Airway: Mallampati scale class II Neurological: alert and oriented Last oral intake: >/= 8 hours ASA classification: III Emergent: no Anesthetic plan: proceed Anesthesia type and monitoring: general LMA and standard monitoring Informed Consent: The patient's anesthetic plan and its attendant risks and benefits were discussed with the patient/family/POA. Questions were solicited and answers provided to the satisfaction of the patient/family/POA.
[2021-02-24] MEDS: SCOPOLAMINE 1.5 MG PATCH TRANSDERM (11:25)
[2021-02-24] MEDS: ceFAZolin 2 GM/D5W 50 ML 2 GM/50 ML BAG IVPB (11:30)
[2021-02-24] MEDS: BUPIVACAINE HCL 0.25% PF 30 ML VIAL INFILTRATE (12:00)
[2021-02-24] MEDS: BACITRACIN OINTMENT 15 GM TUBE 1 APPLIC TOPICAL (12:15)
[2021-02-24] MEDS: BALANCED SALT SOLN OPHTH IRRIG 30 ML BTL EACH EYE (12:27)
[2021-02-24 12:30] VITALS: BP 113/66; PULSE 73; RESP 20
--- NOTE | 2021-02-24 12:35 | W.PM.PROC2 ---
Procedure Note - Detailed Date of Procedure 02/24/21 Pre-op Diagnosis Mass right back, neoplasm nasal tip Post-op Diagnosis same Procedure Performed 1. Excision right back subcutaneous mass 17.5cm 2. Excision nasal tip lesion 1.5cm Surgeon Fernando Barros MD Anesthesia MAC Findings Back mass consistent with the appearance of lipoma Description of Procedure Patient was marked in the preoperative holding area with him and his 's verification in. In particular the nose we want to be very clear as he complained of right and some left-sided concerns. He understands removing both of these could elevate the nasal tip some. He would like proceed. Risks, benefits, alternatives were discussed with him his in great detail. I made sure answered all of their questions are satisfaction. Consent obtained. He was taken to the operating room. Anesthesia provided by anesthesiology. He was placed in the lateral decubitus position and prepped and draped in a standard sterile fashion. Surgical time-out was taken. 1% lidocaine and 0.25% Marcaine with epinephrine was used anesthetize locally. Fifteen blade used to make an incision over the mass. Dissection was continued down and was very well-defined lipoma which extended all way down to the level of muscle. I copiously irrigated with saline solution and verified strict hemostasis. I closed in many layers to obliterate all space with 2-0 Vicryl followed by 3-0 Stratafix in a running subcuticular 4-0 Monocryl and tissue glue. We then placed him supine. Re-prepped and draped in a standard sterile fashion. Verified the area of concern. 1% lidocaine and 0.25% Marcaine with epinephrine was used anesthetize locally. A 15 blade used to excise an ellipse of this tissue. This was sent to pathology. I closed with horizontal mattress 5 0 nylon. He tolerated well. He was taken the PACU without difficulty. All instrument sponge counts were correct in the case. Estimated Blood Loss 5 Drains No Packing No Pathology yes ( Right back mass as well as nasal tip lesion) Complications No immediate complications Condition stable Disposition PACU
[2021-02-24 13:00] VITALS: BP 126/67; PULSE 73; RESP 20
[2021-02-24 15:30] VITALS: BP 122/65; PULSE 70; RESP 20
== END 2021-02-24 13:40 | disposition home or self-care (01) ==
PROVIDERS: PCP Family Medicine; Visit Provider Surgery Plastic and Reconstructive Surgery
PROC: (CPT 21931; principal; 2021-02-24 12:00)
PROC: (CPT 21931; 2021-02-24 12:00)
DX: D17.1 Benign lipomatous neoplasm of skin and subcutaneous tissue of trunk (principal); L90.5 Scar conditions and fibrosis of skin; I10 Essential (primary) hypertension; E78.5 Hyperlipidemia, unspecified; R73.03 Prediabetes; Z87.891 Personal history of nicotine dependence; E66.9 Obesity, unspecified; Z68.32 Body mass index [BMI] 32.0-32.9, adult
CPT/HCPCS: 21931; 11442; 88304; 88305; A9270; C9803; J0690; J2250; J2704; J7120; U0003; U0005

== ENCOUNTER 2022-04-05 08:04 | Outpatient (CLI) | payer OTHER, SELFPAY ==
--- NOTE | 2022-04-05 09:00 | ECG_ITS ---
Measurements Intervals [place] Rate: 75 P: 19 MT: 130 QRS: -13 QRSD: 105 T: 22 QT: 370 QTc: 415 Interpretive Statements SINUS RHYTHM INCOMPLETE RIGHT BUNDLE BRANCH BLOCK BASELINE ARTIFACT- I, II, III, AVR, AVL BORDERLINE ECG COMPARED TO ECG 11/02/2020 09:12:06 NO SIGNIFICANT CHANGES Electronically Signed On 04-05-2022 9:31:27 CDT by Collins Ribeiro D.O.
[2022-04-05 09:46] LABS: Basophils Absolute Auto 0.1 K/mm3 (0.0-0.1); Basophils Percent Auto 1.5 % (0.2-1.2); Eosinophils Absolute Auto 0.1 K/mm3 (0-0.3); Eosinophils Percent Auto 1.7 % (0-4.4); Hematocrit 45.4 % (42.0-52.0); Immature Granulocyte Absolute 0.02 K/mm3 (0.00-0.031); Immature Granulocyte Percent A 0.3 % (0-0.5); Lymphocytes Absolute Auto 1.45 K/mm3 (0.9-3.2); Lymphocytes Percent Auto 19.2 % (18.3-44.2); Mean Corpuscular Volume 96.8 fl (80-100); Mean Platelet Volume 10.6 fl (7.4-10.4); Monocytes Absolute Auto 0.7 K/mm3 (0.1-0.6); Monocytes Percent Auto 9.4 % (2.6-8.5); Neutrophils Absolute Auto 5.1 K/mm3 (1.3-6.7); Neutrophils Percent Auto 67.9 % (45.5-73.1); Platelet Count Result 243 k/mm3 (150-375); Red Blood Count 4.69 M/mm3 (4.6-6.20); Red Cell Distribution Width 13.5 % (11.5-14.5); White Blood Count 7.6 K/mm3 (4.5-10.0)
[2022-04-05 10:11] LABS: Albumin Level 4.5 g/dL (3.5-5.1); Anion Gap 16 mmol/L (8-16); Blood Urea Nitrogen 18 mg/dL (9-20); Carbon Dioxide 23 mmol/L (22-30); Chloride 101 mmol/L (98-107); Estimated Glomerular Filt Rate > 60; Glucose 116 mg/dL (65-110); Sodium 140 mmol/L (137-145)
[2022-04-05 10:15] LABS: Urine Cotinine NEGATIVE
[2022-04-05 12:00] LABS: Hemoglobin A1C 5.4 % (<5.7)
== END 2022-04-05 08:05 | disposition home or self-care (01) ==
PROVIDERS: PCP Nurse Practitioner Family; Visit Provider Orthopaedic Surgery
DX: Z01.812 Encounter for preprocedural laboratory examination (principal); M17.11 Unilateral primary osteoarthritis, right knee; I45.10 Unspecified right bundle-branch block
CPT/HCPCS: 80048; 80307; 82040; 83036; 85025; 87070; 93005

== ENCOUNTER 2022-04-05 08:25 | Outpatient (CLI) | payer OTHER, SELFPAY ==
[2022-04-05 10:10] LABS: Cholesterol 183 mg/dL (0-200); HDL Direct 53 mg/dL; Triglycerides 86 mg/dL (<150)
[2022-04-05 10:21] LABS: LDL Cholesterol Direct 91 mg/dL
== END 2022-04-05 08:26 | disposition home or self-care (01) ==
LOC: ANHLAB 08:26
PROVIDERS: PCP Nurse Practitioner Family; Visit Provider Nurse Practitioner Family
DX: E78.5 Hyperlipidemia, unspecified (principal)
CPT/HCPCS: 36415; 80061

== ENCOUNTER 2022-04-19 01:39 | Day surgery (SDC) | payer OTHER, SELFPAY ==
[2022-04-05 08:18] VITALS: BMI 35.2
--- NOTE | 2022-04-05 08:39 | PC.NURSE ---
Report to the Outpatient Waiting Room, entrance under the green pavilion located off [facility], at [id number] on date __04/19/22 . OR Time: ___729 . Time changes happen often and if your time is changed the preop area will call you the afternoon before. - You and your visitor will be asked to self-screen and do not enter if you have any COVID symptoms. - Only one visitor and NO children visitors are allowed at this time. - The patient visitor is requested to leave or wait in car when not with patient due to restrictions. TOTAL JOIINT CLASS 04/05 AT 10 AM - A mask is required within the hospital. Patients may have clear liquids (water, carbonated beverages, clear teas, apple juice) until 3 hours prior to surgery with a maximum of 20 ounces. - No food from midnight until time of surgery - Infants may have breast milk until 4 hours before surgery, infant formula 6 hours prior to surgery. - Children will be allowed to drink immediately following surgery. If applicable, please bring a bottle or sippy cup to assist with drinking. Juice, water, soda, and popsicles are readily available. For infants on formula, please bring formula the day of surgery. Pacifiers are allowed. Take the following medications with a SIP of water the morning of surgery: ____METOPROLOL Medications to discontinue per physician ADVIL 7 DAYS PRE OP Date to take last dose 04/11/22 MAY TAKE TYLENOL IF NEEDED FOR PAIN Please no make-up, nail english, hairspray, perfume, deodorant, or body powder the day of surgery. No jewelry (including any body piercings) or valuables the day of surgery, leave them at home. Please take a shower or bath the night before, or the morning of, surgery with an antibacterial soap. Wear comfortable, loose fitting clothing. Children are encouraged to wear pajamas. - Jewelry must be removed prior to entering the operating room. Rings and piercings that are not removed may be cut off. - The hospital will not accept responsibility for valuables. - Please leave all valuables, including medications, at home the day of surgery. If you are going home after surgery, a licensed local bulk driver must drive you home. - NO public transportation without another adult. - We recommend that an adult stay with you for 24 hours following discharge. - We also recommend that you do not drive, make important decision, drink alcoholic beverages, or take any drugs that were not prescribed by your health care provider for at least 24 hours after your discharge time. For Pediatric surgeries, we recommend two adults accompany the child home (only one inside the building at this time). Follow any additional instructions given to you from your surgeon. If you or anyone in your household have experienced Covid symptoms in the past week, please notify your surgeon or the nurse liaison at the phone number below for possible testing. VERBAL AND WRITTEN instructions given to _PATIENT and asked if any additional questions and then verbalized understanding. Patient advised to call surgeon office or pre surgery nurse liaison [phone] if any additional questions.
[2022-04-05 08:52] VITALS: BP 137/71; PULSE 84; RESP 18; TEMP 36.7; O2SAT 98
--- NOTE | 2022-04-18 16:34 | PM.IMHP ---
H&P: HPI History of Present Illness Date/Time: 04/18/22 16:34 Chief Complaint: right knee DJD Narrative: 62-year-old male patient of Dr. Blair who presents today for a right total knee arthroplasty. He underwent left total knee arthroplasty in November of 2020. He is very happy with his results. His right knee he has been treating nonsurgically for the last year with cortisone injections every 3 months. Last injections were December 16 of this year which gave him minimal improvement of his symptoms. He has [id number] osteoarthritis in the medial compartment of the right knee. At this point patient feels he is ready to proceed with surgery rather continue nonsurgical treatment. Review of Systems Review of Systems: All systems reviewed & are unremarkable except as noted in HPI and below PMFSH Past Medical History Medical History Daily consumption of alcohol Dyslipidemia Essential (primary) hypertension Nocturia Osteoarthritis Prediabetes Hemoglobin A1c was 5.4% in October 2020. Seasonal allergies Surgical History Surgical History History of arthroplasty of left knee (11/17/20) History of repair of left rotator cuff (~2006) Family History Family History Father Diabetes mellitus Mother Hypertension Social History Social History Social History: Surrogate decision maker: Naomie Wooten, . Code status: Full code. Smoking packs per day: 1.5 Smoking cigarettes per day: 30.0 Years smoked: 38 Smoking pack-years: 57.00 Smoking status: Former smoker Tobacco type: cigarettes Second hand tobacco smoke exposure: No Smoking end date: 01/13/17 Additional smoking assessment comments: DENIES ANY FORM OF TOBACCO USE Alcohol intake: current Drinks per week: 28 Alcohol use details: Beer. 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 Gender identity (if verbalized by the patient): Male Sexual Orientation (if Verbalized by the Patient): Straight or Heterosexual Spiritual care concerns: No Agree to blood products: Yes Meds Home Medications and Allergies Home Medications Medication Instructions Recorded Confirmed Type metoprolol succinate 50 mg 50 mg PO DAILY #90 tabs 02/14/22 04/19/22 Rx tablet,extended release 24 hr tamsulosin 0.4 mg capsule 0.4 mg PO DAILY #90 caps 02/15/22 04/19/22 Rx atorvastatin 20 mg tablet 20 mg PO QHS #90 tabs 03/21/22 04/19/22 Rx lisinopril 20 1 tablet PO DAILY #90 tabs 03/21/22 04/19/22 Rx mg-hydrochlorothiazide 12.5 mg tablet ibuprofen 200 mg tablet (Advil) 400 mg PO Q6H PRN Pain 04/05/22 04/19/22 History Allergies Allergy/AdvReac Type Severity Reaction Status Date / Time No Known Allergies Allergy Verified 04/19/22 06:27 Exam Narrative: 60-year-old male alert pleasant. He is 5 ft 9 and 240 lb. Right knee range of motion is from 5-120 degrees. Mild effusion. Mild tenderness over the medial joint line to palpation. Mild pain with patellofemoral grind. No lateral joint line tenderness. Normal stability in the knee. Hip range of motion is full without discomfort on the right, negative Stinchfield maneuver. Normal quad strength. He has intact sensation to the right lower extremity. No edema in the right lower extremity. 2+ dorsalis pedis and posterior artery pulse palpable. Resp: Auscultation: clear to auscultation bilaterally Cardio: Rate: regular rate Rhythm: regular rhythm Assessment and Plan Assessment and plan (1) Right knee DJD: Code(s): M17.11 - Unilateral primary osteoarthritis, right knee Status: Acute Plan 62-year-old m
[2022-04-19] VITALS (16 sets, daily range): BP systolic 97–135; BP diastolic 50–75; PULSE 70–89; RESP 10–18; TEMP 36.6–37.1; O2SAT 93–99
--- NOTE | ~2022-04-19 | XR_ITS ---
EXAMINATION: XR knee RT 2V DATE: 04/19/2022 11:43 INDICATION: Postoperative evaluation following right total knee arthroplasty. TECHNIQUE: Anteroposterior and lateral views of the right knee were obtained. COMPARISON: None. FINDINGS: Right total knee arthroplasty with patellar resurfacing appears well seated and in near anatomic alig nment. No fractures identified. Expected postoperative subcutaneous and intra-articular gas. IMPRESSION: 1. Right total knee arthroplasty, negative for postoperative purposes. Reviewed, dictated and finalized at location A.
[2022-04-19] MEDS: ACETAMINOPHEN 500 MG TABLET 1000 MG PO ×2 (06:31→16:10)
--- NOTE | 2022-04-19 06:57 | WPDANESEPPF ---
Anes - Initial Pre Proc Eval Procedure: Operation Date: 04/19/22 07:30 Proposed Procedures p Right Total Knee Arthroplasty - Jaron Walker MD Date/Time: 04/19/22 06:57 Surgeon: Jaron Walker MD Pre Op Diagnosis: O A Rt Knee Patient Data Age: 62 Gender: M Height: 1.78 m Weight: 109.2 kg Last Vital Signs Temp 36.6 C 04/19/22 06:35 Pulse 89 04/19/22 06:35 Resp 16 04/19/22 06:35 BP 135/75 04/19/22 06:35 Pulse Ox 99 04/19/22 06:35 O2 Del Method Room Air 04/19/22 06:35 Allergies Allergy/AdvReac Type Severity Reaction Status Date / Time No Known Allergies Allergy Verified 04/19/22 06:27 Home Medications Medication Instructions Recorded Confirmed Type metoprolol succinate 50 mg 50 mg PO DAILY #90 tabs 02/14/22 04/19/22 Rx tablet,extended release 24 hr tamsulosin 0.4 mg capsule 0.4 mg PO DAILY #90 caps 02/15/22 04/19/22 Rx atorvastatin 20 mg tablet 20 mg PO QHS #90 tabs 03/21/22 04/19/22 Rx lisinopril 20 1 tablet PO DAILY #90 tabs 03/21/22 04/19/22 Rx mg-hydrochlorothiazide 12.5 mg tablet ibuprofen 200 mg tablet (Advil) 400 mg PO Q6H PRN Pain 04/05/22 04/19/22 History Patient hx anesthesia problems: none Family hx anesthesia problems: none Results Review: All pre-operative results and documents have been reviewed as part of the pre-operative evaluation. [facility] Past Medical History Medical History Daily consumption of alcohol Dyslipidemia Essential (primary) hypertension Nocturia Osteoarthritis Prediabetes Hemoglobin A1c was 5.4% in October 2020. Seasonal allergies Surgical History Surgical History History of arthroplasty of left knee (11/17/20) History of repair of left rotator cuff (~2006) Family History Family History Father Diabetes mellitus Mother Hypertension Social History Social History Social History: Surrogate decision maker: Naomie Wooten, . Code status: Full code. Smoking packs per day: 1.5 Smoking cigarettes per day: 30.0 Years smoked: 38 Smoking pack-years: 57.00 Smoking status: Former smoker Tobacco type: cigarettes Second hand tobacco smoke exposure: No Smoking end date: 01/13/17 Additional smoking assessment comments: DENIES ANY FORM OF TOBACCO USE Alcohol intake: current Drinks per week: 28 Alcohol use details: Beer. 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 Gender identity (if verbalized by the patient): Male Sexual Orientation (if Verbalized by the Patient): Straight or Heterosexual Spiritual care concerns: No Agree to blood products: Yes Anes - Eval Final PreProcedure Day of Procedure 04/19/22 06:57 Patient weight: obese Heart: regular rate and rhythm Lungs: clear to auscultation Airway: Mallampati scale class III Neurological: alert and oriented Last oral intake: >/= 8 hours ASA classification: III Emergent: no Anesthetic plan: proceed Anesthesia type and monitoring: general ETT and standard monitoring Results Review: All pre-operative results and documents have been reviewed as part of the pre-operative evaluation. Informed Consent: The patient's anesthetic plan and its attendant risks and benefits were discussed with the patient/family/POA. Questions were solicited and answers provided to the satisfaction of the patient/family/POA.
[2022-04-19] MEDS: TRANEXAMIC ACID 1,000MG/ISO100 1,000 MG/100 ML BAG 200 MG IVPB (07:00)
[2022-04-19] MEDS: LACTATED RINGERS 1,000 ML 30 ML IV CONT ×2 (07:09→11:28)
[2022-04-19] MEDS: SCOPOLAMINE 1.5 MG PATCH TRANSDERM (07:10)
--- NOTE | 2022-04-19 07:17 | WPDHPUPDATE1 ---
History and Physical Update Update Date/Time: 04/19/22 07:17 History and Physical has been reviewed, including an updated exam of the patient. There are NO changes in the patient's condition. Risks, benefits, and alternatives have been discussed and questions answered. Patient agrees to proceed with procedure.
[2022-04-19] MEDS: ceFAZolin 2 GM/D5W 50 ML 2 GM/50 ML BAG IVPB (07:30)
[2022-04-19] MEDS: ceFAZolin SODIUM 1 GM VIAL 3 GM (08:10)
[2022-04-19] MEDS: GENTAMICIN BONE CEMENT REFOBACIN 1 EACH TOPICAL (08:11)
[2022-04-19] MEDS: TRANEXAMIC ACID 1,000 MG/10 ML AMPUL 1000 MG IV PUSH (10:37)
[2022-04-19] MEDS: ceFAZolin SODIUM 1 GM VIAL 2 GM IV PUSH (10:37)
[2022-04-19] MEDS: KETOROLAC 15 MG/ML VIAL (*BKC) IV PUSH (10:45)
--- NOTE | 2022-04-19 11:30 | W.PM.PROC2 ---
Procedure Note - Detailed Date of Procedure 04/19/22 Pre-op Diagnosis O A Rt Knee Post-op Diagnosis Same Procedure Performed Right total knee arthroplasty Surgeon Jaron Walker MD Plant Senior Manager Emani Cardoso Description of Procedure Patient was brought to the operating room general anesthesia was administered right knee prepped draped usual fashion. He received 2 g of Ancef weight based vancomycin 1 g tranexamic acid preoperatively. Limb was exsanguinated tourniquet elevated to 300 mmHg. An 8 in longitudinal midline incision was using a vastus medialis splitting approach utilized splitting the vastus medialis at the superior pole of patella. Infrapatellar and suprapatellar fat pads were excised a quadriceps synovectomy carried out. The patella was arthritic. It measured 20 3 mm in thickness was cut to 15.5 mm. Bone quality was excellent. Protector cap applied. Guide rubs or drill femoral canal after aspiration of canal contents using the 5 degree cutting bushing 9 mm of bone removed off the distal femur. This removed about a laterally. Next the tibial plateau was cut. We tried to make a skim cut off the low point of medial tibial plateau. When up having to remove an additional 2 mm to achieve that goal. This removed about 7 or 8 laterally. Alignment was confirmed to be appropriate. Flexion gap was 9 mm medially and 13 mm laterally. Femoral sizing guide was applied to the femur and 5? of external rotation utilized which matched [place] line and posterior referencing pinholes were placed. A femur was cut to a size 67.5 vanguard. This fit nicely medial to lateral and anterior posterior. Tibia was sized to a 75 which fit line to line posterolateral to anteromedial at proper rotation. This was punched we trialed. The knee lacked about 7? of extension with the 11 PS insert appropriate DVT stability. An additional 2 mm of bone removed off the distal femur and the chamfer cuts revisited. Posterior femoral osteophyte removed. Central capsular release performed because of his flexion contracture preoperatively under anesthesia. On re trialing, the knee still lacked about 3? of extension but had 2 mm of medial and 2.5 mm of lateral play in extension to valgus and varus stress. Appropriate stability with the 11 insert at 90? and deep flexion rock solid. Posterior capsule release was performed from the medial gastroc tendon to lateral gastroc tendon and on read trialing this time knee came out to full extension with no bounce. About 1 1/2 mm of medial opening and 2 mm lateral in this position. Normal AP stability throughout range of motion. [place] flexion was to 1 25. Patella was sized to the 34 thin lug holes drilled composite patellar thickness 24 mm. There was central patellar tracking throughout range of motion. A step drill was used to make multiple perforations throughout the surfaces of the tibial plateau and distal femur. His bone quality was quite dense. Bony surfaces were thoroughly irrigated and dried. We did put the tourniquet down at 90 minutes and re-exsanguinated with the tourniquet up at this time. After thorough irrigation and drying 2 batches of methylmethacrylate 1 the gentamicin powder mixed. Cement was applied to the tibial component and then the femoral component cement applied to tibia pressurized the tibial component fully seated. Cement applied to the femur the femoral component fully seated the knee brought into extension with a 12 mm 5 and 1 insert a. Knee brought into full extension good 34 x 7.8 mm patellar button was cemented tourniquet released. Total tourniquet time approximately 100 minutes. After cement hardening excess cement was sought for removed and hemostasis was achieved. We trialed a 12 which had a positive bounce no plate medially and was too tight on the medial side of the knee at 90? of flexion. The 11 mm was appropriate in all positions. The 11 mm placed without difficulty locked with a locking pin ran
[2022-04-19] MEDS: fentaNYL CITRATE INJ (*CRX) 100 MCG/2 ML VIAL 25 MCG IV PUSH ×2 (11:52→13:02)
--- NOTE | 2022-04-19 13:03 | SUR.PHASEI ---
1300 pt is ready for floor waiting on a bed
--- NOTE | 2022-04-19 14:46 | ADMGEN ---
This patient, [place] Wooten, was admitted to Medical Room 245-. Patient/family oriented to hospital policies and general routines including ID bracelet, bed and alarms, visiting hours, pain management, procedures, bathroom and other care routines, personal items, smoking policy, room service/diet, and visiting hours. Information on how to activate the Rapid Response Team has been discussed. Patient/Family are encouraged to report perceived risks to care and to ask questions if they do not understand what they are told or what they should do.
[2022-04-19] MEDS: SODIUM CHLORIDE 0.9% IV 1,000 ML 125 ML IV CONT (16:09)
[2022-04-19] MEDS: SENNA/DOCUSATE SODIUM TABLET 2 TAB PO (16:11)
[2022-04-19] MEDS: oxyCODONE HCL (*CRX) 5 MG TAB IR PO ×2 (16:13→21:02)
[2022-04-19] MEDS: ATORVASTATIN 20 MG TABLET PO (21:02)
[2022-04-20 00:16] VITALS: BP 95/48; PULSE 76; RESP 16; TEMP 36.6; O2SAT 97
[2022-04-20 00:40] VITALS: BP 105/65
[2022-04-20] MEDS: oxyCODONE HCL (*CRX) 5 MG TAB IR PO ×4 (00:41→12:29)
[2022-04-20] MEDS: ACETAMINOPHEN 500 MG TABLET 1000 MG PO ×3 (00:41→12:29)
[2022-04-20 04:16] VITALS: BP 130/60; PULSE 77; RESP 20; TEMP 36.4; O2SAT 98
[2022-04-20 05:10] LABS: Basophils Percent Auto 0.2 % (0.2-1.2); Hematocrit 34.3 % (42.0-52.0); Hemoglobin 11.3 g/dL (14.0-18.0); Immature Granulocyte Absolute 0.05 K/mm3 (0.00-0.031); Immature Granulocyte Percent A 0.5 % (0-0.5); Lymphocytes Absolute Auto 0.98 K/mm3 (0.9-3.2); Lymphocytes Percent Auto 9.8 % (18.3-44.2); Mean Corpuscular HGB Conc 32.9 g/dl (32-36); Mean Corpuscular Hemoglobin 32.2 pg (26-34); Mean Corpuscular Volume 97.7 fl (80-100); Mean Platelet Volume 10.7 fl (7.4-10.4); Monocytes Absolute Auto 1.8 K/mm3 (0.1-0.6); Monocytes Percent Auto 17.9 % (2.6-8.5); Neutrophils Absolute Auto 7.2 K/mm3 (1.3-6.7); Neutrophils Percent Auto 71.6 % (45.5-73.1); Platelet Count Result 199 k/mm3 (150-375); Red Blood Count 3.51 M/mm3 (4.6-6.20); Red Cell Distribution Width 13.5 % (11.5-14.5)
[2022-04-20 05:24] LABS: Anion Gap 9 mmol/L (8-16); Blood Urea Nitrogen 19 mg/dL (9-20); Carbon Dioxide 26 mmol/L (22-30); Chloride 102 mmol/L (98-107); Estimated CRCL calculation 70 ml/min; Estimated Glomerular Filt Rate > 60; Glucose 120 mg/dL (65-110); Sodium 137 mmol/L (137-145)
--- NOTE | 2022-04-20 07:03 | PM.PNORT ---
Subjective Subjective Date/Time Seen: 04/20/22 07:03 postop day 1 patient is alert. Afebrile vital signs are stable. Pain is well controlled. Patient has been up multiple times overnight to the restroom. He has mild swelling in the right knee. His dressing is intact and dry. Neurovascularly he is intact. Morning labs are noted. Overall patient is doing very well. We will plan to have him work with physical therapy today and once his IV antibiotics have been completed he will be discharged to home. Objective Data Vital Signs Vital Signs: Vital Signs - 24 hr 04/19/22 11:27 04/19/22 11:40 04/19/22 11:55 Temperature 37.1 C Pulse Rate 82 76 73 Respiratory Rate 11 L 10 L 13 Blood Pressure 114/67 97/63 L 110/64 Pulse Oximetry 98 93 95 Oxygen Delivery Simple Face Mask Room Air Room Air Oxygen Flow Rate 6 04/19/22 11:55 04/19/22 12:10 04/19/22 12:25 Temperature 37.1 C Pulse Rate 73 75 83 Respiratory Rate 13 15 16 Blood Pressure 110/64 113/69 113/66 Pulse Oximetry 95 95 96 Oxygen Delivery Room Air Room Air Room Air Oxygen Flow Rate 04/19/22 12:40 04/19/22 12:55 04/19/22 13:10 Temperature Pulse Rate 73 73 81 Respiratory Rate 14 18 12 Blood Pressure 111/63 112/68 108/55 L Pulse Oximetry 96 96 95 Oxygen Delivery Room Air Room Air Room Air Oxygen Flow Rate 04/19/22 13:40 04/19/22 14:10 04/19/22 14:45 Temperature 36.7 C Pulse Rate 70 70 73 Respiratory Rate 16 18 18 Blood Pressure 109/62 112/69 127/64 Pulse Oximetry 96 98 99 Oxygen Delivery Room Air Room Air Oxygen Flow Rate 04/19/22 14:55 04/19/22 15:30 04/19/22 15:25 Temperature 36.7 C 36.7 C Pulse Rate 75 80 Respiratory Rate 18 18 Blood Pressure 125/63 123/58 L Pulse Oximetry 97 96 Oxygen Delivery Room Air Oxygen Flow Rate 04/19/22 16:25 04/19/22 20:16 04/20/22 00:16 Temperature 36.7 C 36.6 C 36.6 C Pulse Rate 76 73 76 Respiratory Rate 18 12 16 Blood Pressure 100/58 L 102/50 L 95/48 L Pulse Oximetry 97 96 97 Oxygen Delivery Oxygen Flow Rate 04/20/22 00:40 04/20/22 04:16 Temperature 36.4 C Pulse Rate 77 Respiratory Rate 20 Blood Pressure 105/65 130/60 Pulse Oximetry 98 Oxygen Delivery Oxygen Flow Rate Intake/Output Intake/Output: Intake & Output 04/17/22 04/18/22 04/19/22 04/20/22 23:59 23:59 23:59 23:59 Intake Total 1400 300 Output Total 100 Balance 1400 200 Meds/Results Medications: Active Medications Generic Name Dose Route Start Last Admin Trade Name Freq PRN Reason Stop Dose Admin Acetaminophen 1,000 mg 04/19/22 14:31 04/20/22 05:40 Acetaminophen 500 Mg Tablet PO 1,000 mg Q6HR CHRYSTAL Administration Apixaban 2.5 mg 04/20/22 09:00 Apixaban 2.5 Mg Tablet PO Q12HR CHRYSTAL Atorvastatin Calcium 20 mg 04/19/22 21:00 04/19/22 21:02 Atorvastatin 20 Mg Tablet PO 20 mg QHS CHRYSTAL Administration Celecoxib 200 mg 04/20/22 08:00 Celecoxib 200 Mg Capsule PO DAILY@0800 CHRYSTAL Cephalexin HCl 500 mg 04/20/22 12:00 Cephalexin 500 Mg Capsule PO Q6HR CHRYSTAL Cefazolin Sodium 1 gm in 50 mls @ 100 mls/hr 04/19/22 15:00 04/20/22 06:38 Ancef 1 Gm/D5w 50 Ml Pm IVPB 04/20/22 07:29 Infused Q8H CHRYSTAL Infusion Vancomycin HCl 1,000 mg in 250 mls @ 250 mls/hr 04/19/22 19:00 04/20/22 06:38 Vancomycin 1,000 Mg/D5w 250 Ml IVPB 04/20/22 07:59 200 mls/hr Q12H CHRYSTAL Administration Metoprolol Succinate 50 mg 04/20/22 09:00 Metoprolol Succinate Ext Rel 50 Mg Tabcr PO DAILY CHRYSTAL Morphine Sulfate 2 mg 04/19/22 14:31 Morphine Sulfate (*Crx) 2 Mg/Ml Inj IV PUSH Q1H PRN Pain Rated 7-10 Naloxone HCl 0.1 mg 04/19/22 14:31 Naloxone Hcl 0.4 Mg/Ml Vial IV PUSH Q2M PRN Opiate Reversal Oxycodone HCl 5 mg 04/19/22 17:00 04/20/22 05:40 Oxycodone Hcl (*Crx) 5 Mg Tab Ir PO 5 mg Q4HR CHRYSTAL Administration Oxycodone HCl 5 mg 04/19/22 14:31 Oxycodone Hcl (*Crx) 5 Mg Tab Ir PO Q4H
--- NOTE | 2022-04-20 07:07 | PM.DS ---
DS: Admitting Diagnosis Discharge Date 04/20 Admitting Diagnosis Right knee DJD DS: Discharge Diagnosis Discharge Diagnosis (1) Right knee DJD: Code(s): M17.11 - Unilateral primary osteoarthritis, right knee Status: Acute Plan 62-year-old male who underwent right total arthroplasty on 04/19. Underwent the procedure without complications. Postoperatively he has been afebrile vital signs are stable. Neurovascularly he is intact. He is weight-bearing as tolerated and was up multiple times the day of surgery to the restroom. His pain on oxycodone and scheduled Tylenol. He is also on Celebrex 200 mg once a day. He will be discharged to home on 04/20. His dressing is dry and intact. Patient was advised to keep leg elevated at home to prevent swelling but also his exercises basis. He has outpatient therapy starting next Sunday. He will go on Keflex 12 days as well as Senokot and MiraLax for constipation. He is on Eliquis for DVT prophylaxis. Patient was advised any questions or concerns once he goes home he is to call the office otherwise we will see him at his appointed states DS: Summary Hospital Course Hospital Course: . Stable Time Spent with Patient Time attestation: Total time spent providing and/or coordinating discharge services: DS: Data Data Completed and Pending Labs on day of discharge: Labs from last 24 hours 04/20/22 04/20/22 04/19/22 04:28 04:28 06:46 WBC 10.0 RBC 3.51 L Hgb 11.3 L D Hct 34.3 L MCV 97.7 MCH 32.2 MCHC 32.9 RDW 13.5 Plt Count 199 MPV 10.7 H Immature Gran % (Auto) 0.5 Neut % (Auto) 71.6 Lymph % (Auto) 9.8 L [place] % (Auto) 17.9 H Eos % (Auto) 0.0 Baso % (Auto) 0.2 Lymph # (Auto) 0.98 [place] # (Auto) 1.8 H Eos # (Auto) 0.0 Baso # (Auto) 0.0 Abs Immat Gran (auto) 0.05 H Absolute Neuts (auto) 7.2 H Absolute Nucleated RBC 0.0 Nucleated RBC % 0.0 Sodium 137 Potassium 4.0 Chloride 102 Carbon Dioxide 26 Anion Gap 9 BUN 19 Creatinine 1.20 Estim Creat Clear Calc 70 Estimated GFR > 60 Glucose 120 H Calcium 8.0 L Blood Type B Negative Antibody Screen Negative Discharge Plan Discharge Patient Disposition: Home, Self-Care Discharge Instructions: JARON WALKER M.D [facility], [place] [id number] [place] [address] POST-OPERATIVE DISCHARGE INSTRUCTIONS TOTAL KNEE ARTHROPLASTY 1. When resting, lie on back with leg elevated above heart to minimize swelling. Significant swelling could indicate a blood clot and if this occurs call the office (or go to the ER) to have a venous ultrasound. 2. Do exercise 5 times a day. 3. Do not sit with leg down except for meals. 4. Wound Care: Nursing will give additional dressings at discharge. Patient to change dressing at home 1 week from surgery, then maintain until seen in office. 5. May shower with dressing in place. 6. Follow weight bearing status instructions. IMPORTANT: Remember not to sit in the chair for more than 30 minutes at a time. As a rule, during the first 14 days after surgery, only sit in the chair to work on the chair knee bending stretch exercise, for meals or for use of the restroom. Sitting in the chair promotes significant swelling in the knee and leg which will make the knee stiff and more painful and which simulates having a blood clot in the veins of the leg. If this type of significant diffuse swelling occurs, an ultrasound at the hospital will be necessary to rule out a blood clot. Be up walking around with the walker for a few minutes every hour while awake and then rest laying on your back on the couch or in bed with your leg elevated on cushions or pillows. Do not rest in the chair. Stand Alone Forms: General Discharge Instructions Follow-up/Referrals: Jaron Walker MD [Physician] - Keep Reg. Scheduled Appt.
--- NOTE | 2022-04-20 07:29 | WPDANESPN ---
Anes - Prog Note Post-Op Date/Time: 04/20/22 07:29 Cardiovascular status: normal Respiratory status: normal Airway patency: baseline Mental status: baseline Post-Op hydration status: normal Vital Signs: Last Vital Signs Temp 97.6 F 04/20/22 04:16 Pulse 77 04/20/22 04:16 Resp 20 04/20/22 04:16 BP 130/60 04/20/22 04:16 Pulse Ox 98 04/20/22 04:16 O2 Del Method Room Air 04/19/22 15:30 O2 Flow Rate 6 04/19/22 11:27 Pain Score (VAS): 0/10 I/O: Intake & Output 04/19/22 04/19/22 04/20/22 15:59 23:59 07:59 Intake Total 1050 350 300 Output Total 100 Balance 1050 350 200 Laboratory Tests 04/20/22 04:28 04/20/22 04:28 04/19/22 04/20/22 04/20/22 06:46 04:28 04:28 WBC 10.0 RBC 3.51 L Hgb 11.3 L D Hct 34.3 L MCV 97.7 MCH 32.2 MCHC 32.9 RDW 13.5 Plt Count 199 MPV 10.7 H Immature Gran % (Auto) 0.5 Neut % (Auto) 71.6 Lymph % (Auto) 9.8 L [place] % (Auto) 17.9 H Eos % (Auto) 0.0 Baso % (Auto) 0.2 Lymph # (Auto) 0.98 [place] # (Auto) 1.8 H Eos # (Auto) 0.0 Baso # (Auto) 0.0 Abs Immat Gran (auto) 0.05 H Absolute Neuts (auto) 7.2 H Absolute Nucleated RBC 0.0 Nucleated RBC % 0.0 Sodium 137 Potassium 4.0 Chloride 102 Carbon Dioxide 26 Anion Gap 9 BUN 19 Creatinine 1.20 Estim Creat Clear Calc 70 Estimated GFR > 60 Glucose 120 H Calcium 8.0 L Blood Type B Negative Antibody Screen Negative Post-procedural complaints: none Patient Feedback: Patient satisfied with anesthetic care.
[2022-04-20] MEDS: CELECOXIB 200 MG CAPSULE PO (08:46)
[2022-04-20] MEDS: SENNA/DOCUSATE SODIUM TABLET 2 TAB PO (08:46)
[2022-04-20] MEDS: APIXABAN 2.5 MG TABLET PO (08:46)
[2022-04-20] MEDS: TAMSULOSIN HCL 0.4 MG CAPSULE PO (08:46)
[2022-04-20] MEDS: polyethylene glycoL 3350 17 GM POWD.PACK PO (08:46)
[2022-04-20 08:49] VITALS: PULSE 89
[2022-04-20] MEDS: METOPROLOL SUCCINATE EXT REL 50 MG TABCR PO (08:49)
[2022-04-20 11:08] VITALS: BP 103/52; PULSE 74; RESP 18; TEMP 36.6; O2SAT 98
[2022-04-20] MEDS: CEPHALEXIN 500 MG CAPSULE PO (12:29)
== END 2022-04-20 13:50 | disposition home or self-care (01) ==
LOC: ANHSURGERY 06:14 → ANH2MED 14:35
PROVIDERS: PCP Nurse Practitioner Family; Visit Provider Orthopaedic Surgery
PROC: (CPT 27447; principal; 2022-04-19 07:30)
DX: M17.11 Unilateral primary osteoarthritis, right knee (principal); Z96.652 Presence of left artificial knee joint; E78.5 Hyperlipidemia, unspecified; I10 Essential (primary) hypertension; R73.03 Prediabetes; Z87.891 Personal history of nicotine dependence
CPT/HCPCS: 27447; 36415; 73560; 80048; 80307; 82040; 83036; 85025; 86850; 86900; 86901; 87070; 93005; 97110; 97116; 97161; 97165; 97530; A9270; C1713; C1776; J0171; J0690; J1100; J1170; J1885; J2250; J2270; J2370; J2405; J2704; J2795; J3010; J3370; J7030; J7120